=== PATIENT | female | born 2000 | race Caucasian/White ===

== ENCOUNTER 2021-02-26 16:52 | Inpatient (IN) | payer OTHER ==
[~2021-02-26] VITALS: Ht 154.9 cm; Wt 87.1 kg
[~2021-02-26 16:52] MED LIST: COLACE 100MG C100 MG PO; FEOSOL325 MG PO; IBUPROFEN600 MG PO; LORTAB 5-325 M1 EACH PO
[2021-02-26 20:28] LABS: HEMOGLOBIN 10.2 gm/dl (12.3-15.3); RED BLOOD COUNT 4.1 M/UL (4.00-5.10); WHITE BLOOD COUNT 11.1 K/UL (4.5-11.0)
[2021-02-28 05:22] LABS: HEMOGLOBIN 10.2 gm/dl (12.3-15.3)
[2021-03-01] MEDS ORDERED: IBUPROFEN600 MG PO (12:15)
[2021-03-01] MEDS ORDERED: DOCUSATE SODIU100 MG PO (12:15)
== END 2021-03-01 14:32 | disposition home or self-care (01) | DRG 807 ==
LOC: GENOP 16:52 → OB 17:03
PROVIDERS: Obstetrics & Gynecology; ADMIT Obstetrics & Gynecology
PROC: 10E0XZZ Delivery of Products of Conception, External Approach (ICD-10-PCS; principal; 2021-02-27)
PROC: 10907ZC Drainage of Amniotic Fluid, Therapeutic from Products of Conception, Via Natural or Artificial Opening (ICD-10-PCS; 2021-02-27)
PROC: 0HQ9XZZ Repair Perineum Skin, External Approach (ICD-10-PCS; 2021-02-27)
PROC: 3E033VJ Introduction of Other Hormone into Peripheral Vein, Percutaneous Approach (ICD-10-PCS; 2021-02-27)
PROC: 10H07YZ Insertion of Other Device into Products of Conception, Via Natural or Artificial Opening (ICD-10-PCS; 2021-02-27)
PROC: 4A1H8CZ Monitoring of Products of Conception, Cardiac Rate, Via Natural or Artificial Opening Endoscopic (ICD-10-PCS; 2021-02-27)
PROC: 10H073Z Insertion of Monitoring Electrode into Products of Conception, Via Natural or Artificial Opening (ICD-10-PCS; 2021-02-27)
DX: O99.02 Anemia complicating childbirth (principal); Z37.0 Single live birth; D64.9 Anemia, unspecified; O99.334 Smoking (tobacco) complicating childbirth; F17.200 Nicotine dependence, unspecified, uncomplicated; O70.0 First degree perineal laceration during delivery; Z3A.39 39 weeks gestation of pregnancy; Z20.822 Contact with and (suspected) exposure to COVID-19
CPT/HCPCS: 36415; 81001; 82800; 85014; 85018; 85025; J2405; J2590; J7030; J7120; U0002